=== PATIENT | female | born 1995 | race Caucasian/White ===

== ENCOUNTER → 2016-05-20 | Outpatient (CLI) | payer OTHER ==
[2016-02-11 20:36] VITALS: BP 117/64
[2016-05-20 15:24] LABS: BASOPHILS # (AUTO) 0.1 X10^3/uL (0.0-0.1); BASOPHILS % (AUTO) 0.8 % (0.2-1.0); EOSINOPHILS % (AUTO) 0.3 % (0.9-2.9); HEMATOCRIT 32.8 % (36.0-47.0); LYMPHOCYTES # (AUTO) 1.4 X10^3/uL (1.3-2.9); LYMPHOCYTES % (AUTO) 18.5 % (21.0-51.0); MEAN CORPUSCULAR HEMOGLOBIN 27.4 pg (27.0-34.0); MEAN CORPUSCULAR HGB CONC 33.7 g/dL (33.0-35.0); MEAN CORPUSCULAR VOLUME 81.4 fL (80.0-100.0); MEAN PLATELET VOLUME 7.8 fL (7.4-11.0); MONOCYTES # (AUTO) 0.6 x10^3/uL (0.3-0.8); MONOCYTES % (AUTO) 7.8 % (0.0-13.0); NEUTROPHILS # (AUTO) 5.6 x10^3/uL (2.2-4.8); NEUTROPHILS % (AUTO) 72.6 % (42.0-75.0); PLATELET COUNT 241 X10^3/uL (150.0-450.0); RED BLOOD COUNT 4.03 X10^6/uL (3.5-5.4); RED CELL DISTRIBUTION WIDTH 15.2 % (11.6-16.5); WHITE BLOOD COUNT 7.7 X10^3/uL (3.6-10.0)
[2016-05-20 15:25] LABS: BILIRUBIN,URINE NEGATIVE (NEGATIVE); BLOOD/HEMOGLOBIN,URINE NEGATIVE (NEGATIVE); GLUCOSE, URINE NEGATIVE (NEGATIVE); KETONES,URINE NEGATIVE (NEGATIVE); LEUKOCYTE ESTERASE ,URINE NEGATIVE (NEGATIVE); NITRITES,URINE NEGATIVE (NEGATIVE); PROTEIN,URINE NEGATIVE (NEGATIVE); UROBILINOGEN,URINE 2+ (NORMAL)
[2016-05-20 15:31] LABS: APPEARANCE,URINE CLEAR (CLEAR); COLOR,URINE YELLOW (YELLOW); RBC,URINE NONE SEEN /HPF (NEGATIVE)
[2016-05-20 15:31] LABS: BLOOD UREA NITROGEN 7 mg/dL (7-18); CALCIUM 8.7 mg/dL (8.5-10.1); CHLORIDE 101 mmol/L (98-107); CREATININE 0.59 mg/dL (0.55-1.02); GLUCOSE 99 mg/dL (65-99); SODIUM 132 mmol/L (136-145); eGFR BLACK RACES > 60 (>60); eGFR NON BLACK RACES > 60 (>60)
[2016-05-20 15:32] LABS: AMORPHOUS SEDIMENT,UR TRACE /HPF (NEGATIVE); BACTERIA,URINE TRACE /HPF (NEGATIVE); MUCUS,URINE FEW /HPF (NEGATIVE); SQUAMOUS EPITHELIAL CELL,UR FEW /HPF (NEGATIVE)
== END ==
LOC: LAB 14:54
PROVIDERS: ATTEND Specialist
DX: Z01.818 Encounter for other preprocedural examination (principal); Z34.83 Encounter for supervision of other normal pregnancy, third trimester
CPT/HCPCS: 36415; 80048; 81001; 85025; 86592; 86850; 86900; 86901

== ENCOUNTER 2016-05-22 06:07 | Inpatient (IN) | payer OTHER ==
[2016-05-22] MEDS: D5 1/2 NS 1000 ML 1,000 ML IV SCH ×2 (06:40→17:21)
[2016-05-22] MEDS ORDERED: D5 1/2 NS 1000ML W PITOCIN 20 U/L 1,000 ML IV ONE (06:46)
[2016-05-22] MEDS ORDERED: D5LR 1000ML W PITOCIN 10 U/L 1,000 ML IV ONE (06:46)
[2016-05-22] MEDS ORDERED: D5 NS 1000 ML 1,000 ML IV ONE (06:46)
--- NOTE | 2016-05-22 07:00 | DR.OB ---
OB Quick Note - Assessment/Plan Assessment/Plan: L&D 05/22/16 at 6:50am S-No complaint. O-Afebrile,VSS YTR=807 with good LTV, +accel, no decel. CTX=none CVX=1cm/50%/-1/VTX AROM with clear fluid. IUPC and FSE placed. A-IUP at 39 0/7 weeks for induction Hypothyroidism P-Begin pitocin induction Anticipate
[2016-05-22] MEDS ORDERED: PITOCIN IVP ONE (07:10)
[2016-05-22] MEDS ORDERED: PITOCIN 10 UNITS in D5 LR 1000 ML 1,000 ML IV PRN (07:10)
[2016-05-22] MEDS ORDERED: REGLAN INJ 10 MG VIAL IVP PRN ×3 (07:10→18:39)
[2016-05-22] MEDS ORDERED: MORPHINE SULFATE INJ 2 MG IVP PRN (07:10)
[2016-05-22] MEDS ORDERED: PHENERGAN INJ 25 MG IV PRN ×2 (07:10→18:39)
[2016-05-22] MEDS ORDERED: TYLENOL 325 MG TAB PO ONE (07:50)
[2016-05-22] MEDS ORDERED: PHENERGAN INJ 25 MG ONE (09:02)
[2016-05-22] MEDS ORDERED: NUBAIN INJ 10 ONE ×4 (09:02→14:01)
[2016-05-22] MEDS: NUBAIN INJ 200 MG VIAL MULTIDOSE IVP PRN ×3 (09:16→14:00)
--- NOTE | 2016-05-22 12:16 | DR.OB ---
OB Quick Note - Assessment/Plan Assessment/Plan: L&D 05/22/16 at 12:10pm Pitocin=18mu/min. S-No complaint except CTX. O-Afebrile,VSS BCO=040 with good LTV, +accel, no decel. CTX=q 1 1/2 min., about 45-65mmHg CVX=1cm/75%/-1 A-IUP at 39 0/7 weeks for induction Hypothyroidism P-Cont. pitocin induction Anticipate
[2016-05-22] MEDS ORDERED: PITOCIN ONE (14:33)
[2016-05-22] MEDS ORDERED: VERSED ONE (14:33)
[2016-05-22] MEDS ORDERED: NS 100 ML IV 100 ML IV ONE (16:05)
[2016-05-22] MEDS ORDERED: NS 50 ML IV + SPIKE MINIBAG* 50 ML IV ONE (16:06)
[2016-05-22] MEDS ORDERED: LR 1000 ML IV 1,000 ML IV ONE ×2 (16:06→16:29)
--- NOTE | 2016-05-22 16:24 | DR.OB ---
OB Quick Note - Assessment/Plan Assessment/Plan: L&D 05/22/16 at 4:20pm Pitocin=18mu/min. S-No complaint except CTX O-Afebrile,VSS QOH=970 with good LTV, +accel, no decel. CTX=q 1 1/2 min., about 45-60mmHg CVX=1-2cm/75%/-1 (no change) A-IUP at 39 0/7 weeks with failure to dilate P-To C/S
[2016-05-22] MEDS ORDERED: DURAMORPH ONE (16:40)
[2016-05-22] MEDS: ANCEF VIAL 1 GM ONE ×2 (16:40→17:22)
[2016-05-22] MEDS ORDERED: NS IRRIGATION 1000 ML 1,000 ML IR ONE (17:25)
[2016-05-22] MEDS ORDERED: PHENERGAN INJ 25 MG IVP PRN (17:52)
[2016-05-22] MEDS ORDERED: BENADRYL INJ 50 MG VIAL IVP PRN ×2 (17:52→18:39)
[2016-05-22] MEDS ORDERED: ZOFRAN INJ 4 MG VIAL IVP PRN ×2 (17:52→18:39)
[2016-05-22] MEDS ORDERED: TORADOL 30 MG VIAL IVP PRN (18:39)
[2016-05-22] MEDS ORDERED: MYLICON TAB 80 MG CHEW PO PRN (18:39)
[2016-05-22] MEDS ORDERED: NARCAN INJ IVP PRN (18:39)
[2016-05-22] MEDS ORDERED: D5 1/2 NS 1000 ML 1,000 ML with PITOCIN 20 UNITS IV SCH ×2 (18:39)
[2016-05-22] MEDS ORDERED: ADACEL TDaP IM ONE (18:39)
[2016-05-22] MEDS ORDERED: PERCOCET TAB 5/325 MG PO PRN (18:39)
[2016-05-22] MEDS: ZANTAC PO SCH (21:36)
[2016-05-23] MEDS ORDERED: ADACEL TDaP IM ONE (05:03)
[2016-05-23] MEDS: ZANTAC PO SCH ×3 (07:20→20:32)
[2016-05-23] MEDS: PRENATAL PLUS PO SCH ×2 (07:20→08:55)
[2016-05-23] MEDS: COLACE CAP 100 MG PO SCH ×2 (09:46→20:32)
[2016-05-23] MEDS: BENADRYL CAP/TAB 25 MG PO PRN ×2 (12:13→17:59)
[2016-05-23] MEDS: BACTROBAN OINT TOP SCH ×3 (12:13→23:12)
[2016-05-23] MEDS: MOTRIN TAB 800 MG PO PRN ×2 (12:13→23:57)
[2016-05-23] MEDS: PERCOCET TAB 5/325 MG PO PRN ×2 (14:04→20:37)
[2016-05-23] MEDS ORDERED: SYNTHROID 25 mcg TAB PO SCH ×2 (16:30)
[2016-05-24] MEDS: PERCOCET TAB 5/325 MG PO PRN (05:49)
[2016-05-24] MEDS: BACTROBAN OINT TOP SCH (05:49)
[2016-05-24] MEDS: PRENATAL PLUS PO SCH (09:01)
[2016-05-24] MEDS: ZANTAC PO SCH (09:01)
[2016-05-24] MEDS: COLACE CAP 100 MG PO SCH (09:01)
[2016-05-24] MEDS: MOTRIN TAB 800 MG PO PRN (09:01)
[2016-05-24 12:20] VITALS: BP 127/76
== END 2016-05-24 12:45 | disposition home or self-care (01) | DRG 775 ==
LOC: LD 06:07 → MED/SURG 17:59
PROVIDERS: ADMIT Specialist; ATTEND Specialist
PROC: 10907ZC Drainage of Amniotic Fluid, Therapeutic from Products of Conception, Via Natural or Artificial Opening (ICD-10-PCS; 2016-05-22)
PROC: 3E033VJ Introduction of Other Hormone into Peripheral Vein, Percutaneous Approach (ICD-10-PCS; 2016-05-22)
PROC: 3E0234Z Introduction of Serum, Toxoid and Vaccine into Muscle, Percutaneous Approach (ICD-10-PCS; 2016-05-22)
PROC: 10D00Z1 Extraction of Products of Conception, Low, Open Approach (ICD-10-PCS; principal; 2016-05-22 16:15)
DX: O26.893 Other specified pregnancy related conditions, third trimester (principal); Z37.0 Single live birth; Z3A.39 39 weeks gestation of pregnancy; O62.0 Primary inadequate contractions; Z23 Encounter for immunization; E03.8 Other specified hypothyroidism; J45.998 Other asthma
CPT/HCPCS: 36415; 80048; 81001; 85014; 85018; 85025; 86592; 86850; 86900; 86901; 99282; A4216; A4222; S0197; J0690; J1885; J2250; J2300; J2550; J2590; J7120

== ENCOUNTER 2016-05-25 17:01 | Emergency (ER) | payer OTHER ==
[2016-05-25 17:07] VITALS: BP 134/90; BMI 33.9
[2016-05-25] MEDS ORDERED: BENADRYL CAP 50 MG PO ONE (17:45)
[2016-05-25] MEDS ORDERED: CLARITIN PO STA (17:45)
--- NOTE | 2016-05-25 17:45 | DR.ALLERGY ---
HPI - Time Seen Time seen: 17:30 - PCP Primary Care Physician: HAMIDA - Complaint/Symptoms Chief Complaint Doctors Comments: Patient states she had a three days ago and was discharged from the hospital yesterday with Percocet for pain. States she took one yesterday with itching and took another today with itching and rash of face and arms with diffuse itching. States she took a Benadryl with some improvement in the itching. States she is breast feeding. She denies fever, chills, nausea or vomiting. She denies SOB, abdominal pain, dysuria or hematuria. Chief Complaint:: PT. STATES SHE HAD A ON FRIDAY PER DR. MEI AND WAS D/C YESTERDAY FROM HOSPITAL. PT. STATES SHE THINKS SHE IS ALLERGIC TO HER OXYCODONE SHE WAS PRESCRIBED BECAUSE AFTER SHE TOOK IT, SHE BEGAN TO ITCH AND HER FACE GOT RED. PT. STATES SHE TOOK ONE TODAY BUT TOOK A BENADRYL WITH IT. - Source History Provided: Patient - Mode of Arrival Mode of Arrival: Ambulatory - Timing Onset of Chief Complaint: 05/24/16 Came on: Gradually - Context Exposed to: Medication (Percocet) Developed: Rash, Pruritis History of: None - Location Location: Generalized - Severity SOB: None Swallowing: None Rash: Mild Pruritis: Moderate - Modifying factors Improves: Diphenhydramine - Associated signs and symptoms Associated signs and symptoms: None PMH - PMH Past Medical History: Yes Past Medical History: Asthma Past Medical History Comment: TMJ Past Surgical History: Yes Surgical History: - Family History History of Family Medical Conditions: Yes Family Medical History: Diabetes Mellitus, Cancer, [place], Coronary Artery Disease, Heart Failure, Sudden Cardiac , Hypertension - Social History Does patient currently use any type of tobacco product: No Have you used tobacco products in the last 12 months: No Type of Tobacco Use: None Does any household member use tobacco: No Alcohol Use: None Do you use any recreational Drugs:: No Lives With: Significant Other Lives Where: Home - infectious screening In the last 2 months have you had wt loss of >10#?: NO Have you had fever, night sweats or hemotysis?: No Have you traveled outside the country in the last 6 months?: No Isolation: Standard ROS - Review of Systems Constitutional: No Symptoms Reported. negative: See HPI, Chills, Diaphoresis, Fever, Malaise, Weakness, Irritable, Fatigue, Loss of Appetite, Other Eyes: No Symptoms Reported. negative: See HPI, Eye Pain, Blurred Vision, Tearing, Discharge, Photophobia, Diplopia, Other ENTM: No Symptoms Reported, Nose Congestion Respiratoy: No Symptoms Reported. negative: See HPI, Productive Cough, Non- Productive Cough, Moist Cough, Dry Cough, Hacking Cough, Barking Cough, Brassy Cough, Orthopnea, Short of Breath, Stridor, Wheezing, Hemoptysis, Other Cardiovascular: No Symptoms Reported. negative: See HPI, Chest Pain, Edema, Palpitations, Syncope, Cyanosis, Skin Mottling, Other Gastrointestinal/Abdominal: No Symptoms Reported Genitourinary: No Symptoms Reported. negative: See HPI, Discharge, Dysuria, Frequency, Hematuria, Pain, Bleeding, Other Neurological: No Symptoms Reported Musculoskeletal: No Symptoms Reported Integumentary: No Symptoms Reported, Rash (facial erythema with few papules) Hematologic/Lymphatic: No Symptoms Reported Endocrine: No Symptoms Reported Psychiatric: No Symptoms Reported. negative: See HPI, Anxiety, Depression, Hallucinations, Excessive crying, Suicidal, Other PE - Vitals Vital Signs: Temp Pulse Resp BP BP BP Pulse Ox 05/25/16 17:02 98.3 F 95 H 17 134/90 100 05/24/16 12:00 127/76 127/76 05/22/16 16:30 136/86 - Constitutional Limitations: No Limitations General Appearance: Alert, In No Apparent Distress - Head Head Exam: Normal Inspection, Atraumatic, Normocephalic - Eyes Eye exam: Normal Appearance, PERRL, EOMI. negative: Scleral Icterus, Conjunctival Injection, Nystagmus, Miosis, Mydrasis, Periorbital Swelling, Periorbital Tenderness, Other - ENT ENT Exam: Normal Exam, Normal Oropharynx, Normal External Ear Exam, Mucous Membranes Moist, TM's Normal Bilaterally Mouth Exam: Normal Inspection Throat Exam: Normal Inspection - Neck Neck Exam: Normal Inspection, Full ROM, Trachea Midline. negative: Tenderness, Meningismus, Lymphadenopathy, Thyromegaly, Other - Chest Chest Inspection: Normal Inspection, Symmetric Chest Wall Rise - Respiratory Respiratory Exam: Normal Lung Sounds Bilat Respiratory Exam: Bilateral Clear to Auscultation - Cardiovascular Cardiovascular Exam: Regular Rate, Normal Rhythm, Normal Heart Sounds. negative : Bradycardia, Tachycardia, Irregular Rhythm, Systolic Murmur, Diastolic Murmur , Rubs, Gallop, Clicks, JVD, +S1, +S2, +S3, +S4, Other - Abdominal Exam Abdominal Exam: Normal Inspection, Normal Bowel Sounds, Soft. negative: Distention, Tenderness, Guarding, Rebound, Rigidity, Dimnished Bowel Sounds, Hyperactive Bowel Sounds, Hypoactive Bowel Sounds, Organomegaly, Trauma, Incision, Ascites, Mass, Bruit, Pulsatile Mass, Hernia, Other Abdominal Tenderness: negative: RUQ, RLQ, LUQ, LLQ, Epigastrium, Suprapubic, Diffuse, Mild, Moderate, Severe, Other - Extremities Extremities Exam: Normal Inspection, Full ROM, Normal Capillary Refill. negative: Tenderness, Edema, Joint Swelling, Calf Tenderness, Other - Back Back Exam: Normal Inspection, Full ROM. negative: Tenderness, (R) CVA Tenderness, (L) CVA Tenderness, Muscle Spasm, Paraspinal Tenderness, Vertebral Tenderness, Rashes, (R) Sciatic Notch Tenderness, (L) Sciatic Notch Tendern, (R ) Straight Leg Raise, (L) Straight Leg Raise, Other - Neurologic Neurological Exam: Alert, Oriented X3, CN II-XII Intact, Normal Gait, Reflexes Normal - Psychiatric Psychiatric Exam: Normal Affect, Normal Mood - Skin Skin Exam: Warm, Dry, Intact, Normal Color, Rash (facial erythema with few papules on the face; arm with erythema), Erythema Type of Lesion: Rash Distribution: Generalized, Face Description: Erythematous, Papular Course - Reevaluation 1st: Improved - Education/Counseling Education/Counseling: Patient, Family Educated On: Treatment, Diagnosis, Prognosis, Needs for Follow Up - Diagnosis Discharge Problem: History of Allergic reaction Qualifiers: Encounter type: initial encounter Qualified Code(s): T78.40XA - Allergy, unspecified, initial encounter - Discharge Plan Disposition: 01 HOME, SELF-CARE Condition: Stable Prescriptions: Diphenhydramine HCl [BENADRYL CAP 50 MG *] 50 mg PO Q8H #30 cap Loratadine [Allergy] 10 mg PO DAILY #30 tab Ranitidine HCl [ZANTAC TAB 150 MG *] 150 mg PO BID #40 tab - Follow ups/Referrals Follow ups/Referrals: PEGGY MEI [Primary Care Provider] - 3 days - Instructions Instructions: Drug Allergy, [id number], Pruritus, Allergies, [id number]
[2016-05-25] MEDS ORDERED: ZANTAC PO STA (17:46)
[2016-05-25] MEDS ORDERED: BENADRYL CAP/TAB 25 MG PO ONE (17:48)
[2016-05-25] MEDS ORDERED: ZANTAC PO ONE (17:48)
[2016-05-25] MEDS ORDERED: CLARITIN ONE (17:49)
== END 2016-05-25 18:02 | disposition home or self-care (01) ==
LOC: ER 17:10
DX: T78.40XA Allergy, unspecified, initial encounter (principal); Z98.890 Other specified postprocedural states
CPT/HCPCS: 36415; 85014; 85018; 99282; A4216; A4222; S0197; J0690; J1885; J2250; J2300; J2550; J2590; J7120

== ENCOUNTER 2016-12-20 18:38 | Emergency (ER) | payer OTHER ==
[2016-12-20 18:51] VITALS: BP 112/72; BMI 35.9
--- NOTE | 2016-12-20 19:56 | DR.URIAD ---
HPI - Time Seen Time seen: 19:48 - PCP Primary Care Physician: SABRINA - HPI Comment HPI Comment: She has Upper respiratory symptoms to include earache b/l, sore throat,chest cold, cough productive of clear phlegm and congestion. Symptoms yesterday. - Complaint Chief Complaint Doctors Comments: B/l earache, sore throat, cough, cold and congestion Chief Complaint:: PT C/O CCC, EAR PAIN, SOB".. Self Treatment fo Chief Complaint: PT IS 11 WEEK OB,,, - Reviewed Nurses Notes Reviewed: Yes - Source History Provided: Patient - Mode of Arrival Mode of Arrival: Ambulatory - Timing Onset of Chief Complaint: 12/19/16 - Context Recent Treated Infections: None History of Respiratory: None - Quality Quality of Cough: Productive, Clear Rhinorrhea: None Shortness of Breath: Mild - Associated Signs and Symptoms Other Signs and Symptoms: Earache PMH - PMH Past Medical History: Yes Past Medical History: Asthma Past Medical History Comment: TMJ. Currently , 1st trimester. Past Surgical History: Yes Surgical History: Past Surgical History Comment: . - Family History History of Family Medical Conditions: Yes Family Medical History: Diabetes Mellitus, Cancer, [place], Coronary Artery Disease, Heart Failure, Sudden Cardiac , Hypertension - Social History Does patient currently use any type of tobacco product: No Have you used tobacco products in the last 12 months: No Type of Tobacco Use: None Does any household member use tobacco: No Alcohol Use: None Do you use any recreational Drugs:: No Lives With: Family Lives Where: Home - infectious screening In the last 2 months have you had wt loss of >10#?: NO Have you had fever, night sweats or hemotysis?: No Have you traveled outside the country in the last 6 months?: No Isolation: Standard ROS - Review of Systems Eyes: No Symptoms Reported ENTM: Ear Pain Respiratoy: Productive Cough, Other (mild dyspnea) Cardiovascular: No Symptoms Reported Gastrointestinal/Abdominal: No Symptoms Reported Genitourinary: No Symptoms Reported Neurological: No Symptoms Reported Musculoskeletal: No Symptoms Reported Integumentary: No Symptoms Reported Hematologic/Lymphatic: No Symptoms Reported Endocrine: No Symptoms Reported Psychiatric: No Symptoms Reported All Other Systems: Reviewed and Negative PE - Vital Signs Vitals: Temperature 99.2 F Pulse Rate 104 Respiratory Rate 20 Blood Pressure [Right Arm] 127/76 Blood Pressure [Left Arm] 136/86 Blood Pressure 112/72 O2 Sat by Pulse Oximetry 98 - General Limitations: No Limitations General Appearance: Alert, In No Apparent Distress - Head Head Exam: Normal Inspection - Eyes Eye exam: Normal Appearance - ENT ENT Exam: Normal Exam TM/Canal Exam: Bilateral Normal Nose Exam: Normal Nose Exam Nasal Speculum Exam: Bilateral Normal Mouth Exam: Normal Inspection - Neck Neck Exam: Normal Inspection, Full ROM - Chest Chest Inspection: Normal Inspection, Symmetric Chest Wall Rise - Respiratory Respiratory Exam: Normal Lung Sounds Bilat Respiratory Exam: Bilateral Clear to Auscultation - Cardiovascular Cardiovascular Exam: Regular Rate, Normal Rhythm - Abdominal Exam Abdominal Exam: Normal Inspection, Normal Bowel Sounds, Soft - Extremeties Extremities Exam: Normal Inspection, Full ROM - Back Back Exam: Normal Inspection - Neurologic Neurological Exam: Alert, Oriented X3 - Psychiatric Psychiatric Exam: Normal Affect - Skin Skin Exam: Warm, Dry, Intact, Normal Color Course - Reevaluation 1st: Unchanged - Education/Counseling Education/Counseling: Patient, Family Educated On: Diagnosis ROR - Labs Reviewed Laboratory: Streptococcus Screen Negative (NEGATIVE) 12/20/16 20:06 - Diagnosis Discharge Problem: URI (upper respiratory infection) - Discharge Plan Disposition: 01 HOME, SELF-CARE Condition: Stable - Follow ups/Referrals Follow ups/Referrals: NFD,None [Primary Care Provider] - 3 days - Instructions
== END 2016-12-20 20:32 | disposition home or self-care (01) ==
LOC: ER 18:56
DX: J06.9 Acute upper respiratory infection, unspecified (principal)
CPT/HCPCS: 87070; 87880; 99282

== ENCOUNTER 2017-03-24 20:48 | Emergency (ER) | payer OTHER ==
[2017-03-24 20:55] VITALS: BMI 37.0
[2017-03-24 21:23] LABS: BILIRUBIN,URINE NEGATIVE (NEGATIVE); BLOOD/HEMOGLOBIN,URINE NEGATIVE (NEGATIVE); GLUCOSE, URINE NEGATIVE (NEGATIVE); KETONES,URINE NEGATIVE (NEGATIVE); LEUKOCYTE ESTERASE ,URINE NEGATIVE (NEGATIVE); NITRITES,URINE NEGATIVE (NEGATIVE); PROTEIN,URINE NEGATIVE (NEGATIVE); UROBILINOGEN,URINE NORMAL (NORMAL)
--- NOTE | 2017-03-24 21:30 | DR.GENAD ---
HPI - PCP Primary Care Physician: HAMIDA - HPI Comment HPI Comment: LOWER ABDOMINAL PAIN AND PAIN GROIN AREA. . MOVEMENT FELT. NO VAGINAL DISCHRGE. - Complaint/Symptoms Chief Complaint Doctors Comments: PAIN LOWER ABDOMEN AND GROIN AREA. Chief Complaint:: PT STATES" I'M ON BED REST PER PT C/O PAIN IN GROIN BACK AND ABDOMEN" Self Treatment fo Chief Complaint: G 2 P 1 A 0 DUE DATE 07/10/17 - Nurses notes reviewed Nurses Notes Review: Yes - Source History Provided: Patient - Mode of Arrival Mode of Arrival: Ambulatory - Timing Onset of Chief Complaint: 03/24/17 Came on: Suddenly - Duration Duration: Constant Duration: Days - Severity Severity: Moderate PMH - PMH Past Medical History: Yes Past Medical History: Asthma Past Surgical History: Yes Surgical History: - Family History History of Family Medical Conditions: Yes Family Medical History: Diabetes Mellitus, Cancer, [place], Coronary Artery Disease, Heart Failure, Sudden Cardiac , Hypertension - Social History Does any household member use tobacco: No Alcohol Use: None Do you use any recreational Drugs:: No Lives With: Family Lives Where: Home - infectious screening In the last 2 months have you had wt loss of >10#?: NO Have you had fever, night sweats or hemotysis?: No Have you traveled outside the country in the last 6 months?: No Isolation: Standard ROS - Review of Systems Constitutional: No Symptoms Reported Eyes: No Symptoms Reported ENTM: No Symptoms Reported Respiratoy: No Symptoms Reported, Short of Breath Cardiovascular: No Symptoms Reported Gastrointestinal/Abdominal: Abdominal Pain Genitourinary: No Symptoms Reported Neurological: No Symptoms Reported Musculoskeletal: No Symptoms Reported Integumentary: No Symptoms Reported Hematologic/Lymphatic: No Symptoms Reported Endocrine: No Symptoms Reported All Other Systems: Reviewed and Negative PE - Vital Signs Vitals: Temperature 97.2 F Pulse Rate [Right Brachial] 86 Pulse Rate 86 Respiratory Rate 18 Blood Pressure [Right Arm] 122/80 Blood Pressure [Left Arm] 136/86 Blood Pressure 113/60 O2 Sat by Pulse Oximetry 100 - General Limitations: No Limitations General Appearance: Alert - Head Head Exam: Normal Inspection - Eyes Eye exam: Normal Appearance - ENT ENT Exam: Normal External Ear Exam External Ear Exam: Normal External Inspection TM/Canal Exam: Bilateral Normal Nose Exam: Normal Nose Exam Mouth Exam: Normal Inspection Throat Exam: Normal Inspection - Neck Neck Exam: Trachea Midline - Chest Chest Inspection: Symmetric Chest Wall Rise - Respiratory Respiratory Exam: Normal Lung Sounds Bilat Respiratory Exam: Bilateral Clear to Auscultation - Cardiovascular Cardiovascular Exam: Regular Rate, Normal Rhythm, Normal Heart Sounds - Abdominal Exam Abdominal Exam: Normal Bowel Sounds, Soft. negative: Tenderness - Back Back Exam: Normal Inspection - Neurologic Neurological Exam: Alert, Oriented X3 - Psychiatric Psychiatric Exam: Normal Affect, Normal Mood - Skin Skin Exam: Normal Color MDM - Differential Diagnosis Differential Diagnosis: ABDOMINAL PAIN, UTI Course - Treatment Treatment: SEE ORDERS. - Consultation Consultation Comments: NURSE CALL AND DISCUSS PATIENT WITH DR. PACE. - Education/Counseling Education/Counseling: Patient, Education Educated On: Treatment, Diagnosis, Needs for Follow Up ROR - Labs Reviewed Laboratory Results Reviewed?: Yes Result Diagrams: 03/24/17 22:50 03/24/17 22:50 Laboratory: WBC 8.8 X10^3/uL (3.6-10.0) 03/24/17 22:50 RBC 4.31 X10^6/uL (3.5-5.4) 03/24/17 22:50 Hgb 12.3 g/dL (12.0-16.0) 03/24/17 22:50 Hct 36.4 % (36.0-47.0) 03/24/17 22:50 MCV 84.5 fL (80.0-100.0) 03/24/17 22:50 MCH 28.6 pg (27.0-34.0) 03/24/17 22:50 MCHC 33.8 g/dL (33.0-35.0) 03/24/17 22:50 RDW 13.3 % (11.6-16.5) 03/24/17 22:50 Plt Count 280 X10^3/uL (150.0-450.0) 03/24/17 22:50 MPV 7.0 fL (7.4-11.0) L 03/24/17 22:50 Neut % 72.1 % (42.0-75.0) 03/24/17 22:50 Lymph % 19.0 % (21.0-51.0) L 03/24/17 22:50 [place] % 7.6 % (0.0-13.0) 03/24/17 22:50 Eos % 0.7 % (0.9-2.9) L 03/24/17 22:50 Baso % 0.6 % (0.2-1.0) 03/24/17 22:50 Neut # 6.4 x10^3/uL (2.2-4.8) H 03/24/17 22:50 Lymph # 1.7 X10^3/uL (1.3-2.9) 03/24/17 22:50 [place] # 0.7 x10^3/uL (0.3-0.8) 03/24/17 22:50 Eos # 0.1 x10^3/uL (0.0-0.2) 03/24/17 22:50 Baso # 0.1 X10^3/uL (0.0-0.1) 03/24/17 22:50 Absolute Nucleated RBC 0.0 /100WBC 03/24/17 22:50 D-Dimer 210 ng/mL (0-400) 03/24/17 22:50 Sodium 139 mmol/L (136-145) 03/24/17 22:50 Corrected Sodium TNP 03/24/17 22:50 Potassium 3.9 mmol/L (3.5-5.1) 03/24/17 22:50 Chloride 105 mmol/L (98-107) 03/24/17 22:50 Carbon Dioxide 26.5 mmol/L (21-32) 03/24/17 22:50 BUN 5 mg/dL (7-18) L 03/24/17 22:50 Creatinine 0.49 mg/dL (0.55-1.02) L 03/24/17 22:50 Est GFR (MDRD) Af Amer > 60 (>60) 03/24/17 22:50 Est GFR (MDRD) Non-Af > 60 (>60) 03/24/17 22:50 Glucose 90 mg/dL (65-99) 03/24/17 22:50 Calcium 9.1 mg/dL (8.5-10.1) 03/24/17 22:50 Corrected Calcium 9.9 mg/dL (8.5-10.1) 03/24/17 22:50 Total Bilirubin 0.10 mg/dL (0.2-1.0) L 03/24/17 22:50 AST 12 Units/L (15-37) L 03/24/17 22:50 ALT 12 Units/L (12-78) 03/24/17 22:50 Alkaline Phosphatase 76 Units/L (46-116) 03/24/17 22:50 Total Protein 7.0 g/dL (6.4-8.2) 03/24/17 22:50 Albumin 3.0 g/dL (3.4-5.0) L 03/24/17 22:50 Globulin 4.0 g/dL (2.5-4.5) 03/24/17 22:50 Albumin/Globulin Ratio 0.8 Ratio (1.1-2.1) L 03/24/17 22:50 HCG, Quant 9464 mIU/mL (0-6) H 03/24/17 22:50 Specimen Type Clean catch urine 03/24/17 21:05 Urine Color Yellow (YELLOW) 03/24/17 21:05 Urine Appearance Clear (CLEAR) 03/24/17 21:05 Urine pH 6.0 (5.0 - 8.0) 03/24/17 21:05 Ur Specific [place] 1.020 (1.000-1.030) 03/24/17 21:05 Urine Protein Negative (NEGATIVE) 03/24/17 21:05 Urine Glucose (UA) Negative (NEGATIVE) 03/24/17 21:05 Urine Ketones Negative (NEGATIVE) 03/24/17 21:05 Urine Occult Blood Negative (NEGATIVE) 03/24/17 21:05 Urine Nitrite Negative (NEGATIVE) 03/24/17 21:05 Urine Bilirubin Negative (NEGATIVE) 03/24/17 21:05 Urine Urobilinogen Normal (NORMAL) 03/24/17 21:05 Ur Leukocyte Esterase Negative (NEGATIVE) 03/24/17 21:05 Urine RBC 0-2 /HPF (NEGATIVE) 03/24/17 21:05 Urine WBC 0-2 /HPF (NEGATIVE) 03/24/17 21:05 Ur Squamous Epith Cells Moderate /HPF (NEGATIVE) 03/24/17 21:05 Urine Bacteria Negative /HPF (NEGATIVE) 03/24/17 21:05 Urine Mucus Few /HPF (NEGATIVE) 03/24/17 21:05 Ur Culture Indicated? No/not indicated 03/24/17 21:05 - Diagnosis Discharge Problem: Abdominal pain affecting Back pain affecting Qualifiers: Trimester: second trimester Qualified Code(s): O26.892 - Other specified related conditions, second trimester; M54.9 - Dorsalgia, unspecified; M54.9 - Dorsalgia, unspecified - Discharge Plan Disposition: 01 HOME, SELF-CARE Condition: Stable - Follow ups/Referrals Follow ups/Referrals: NFD,None [Primary Care Provider] - 3 days - Instructions Instructions: Hypothyroidism and , Back Pain in , Pelvic Rest , Abdominal Pain During , Second Trimester of Additional Instructions: CALL FOR APPOINTMENT TO SEE DR. MEI TOMORROW BEDREST VAGINAL REST INCREASE FLUID INTAKE TO A [place] A DAY
[2017-03-24 21:36] LABS: APPEARANCE,URINE CLEAR (CLEAR); COLOR,URINE YELLOW (YELLOW); RBC,URINE 0-2 /HPF (NEGATIVE); SQUAMOUS EPITHELIAL CELL,UR MODERATE /HPF (NEGATIVE)
[2017-03-24 21:37] LABS: BACTERIA,URINE NEGATIVE /HPF (NEGATIVE); MUCUS,URINE FEW /HPF (NEGATIVE)
[2017-03-24 23:01] LABS: BASOPHILS # (AUTO) 0.1 X10^3/uL (0.0-0.1); BASOPHILS % (AUTO) 0.6 % (0.2-1.0); EOSINOPHILS # (AUTO) 0.1 x10^3/uL (0.0-0.2); EOSINOPHILS % (AUTO) 0.7 % (0.9-2.9); HEMATOCRIT 36.4 % (36.0-47.0); HEMOGLOBIN 12.3 g/dL (12.0-16.0); LYMPHOCYTES # (AUTO) 1.7 X10^3/uL (1.3-2.9); MEAN CORPUSCULAR HEMOGLOBIN 28.6 pg (27.0-34.0); MEAN CORPUSCULAR HGB CONC 33.8 g/dL (33.0-35.0); MEAN CORPUSCULAR VOLUME 84.5 fL (80.0-100.0); MONOCYTES # (AUTO) 0.7 x10^3/uL (0.3-0.8); MONOCYTES % (AUTO) 7.6 % (0.0-13.0); NEUTROPHILS # (AUTO) 6.4 x10^3/uL (2.2-4.8); NEUTROPHILS % (AUTO) 72.1 % (42.0-75.0); PLATELET COUNT 280 X10^3/uL (150.0-450.0); RED BLOOD COUNT 4.31 X10^6/uL (3.5-5.4); RED CELL DISTRIBUTION WIDTH 13.3 % (11.6-16.5); WHITE BLOOD COUNT 8.8 X10^3/uL (3.6-10.0)
[2017-03-24 23:17] LABS: ALANINE AMINOTRANSFERASE 12 Units/L (12-78); ALKALINE PHOSPHATASE 76 Units/L (46-116); ASPARTATE AMINO TRANSFERASE 12 Units/L (15-37); BLOOD UREA NITROGEN 5 mg/dL (7-18); CALCIUM 9.1 mg/dL (8.5-10.1); CARBON DIOXIDE 26.5 mmol/L (21-32); CHLORIDE 105 mmol/L (98-107); COR CA(FOR HYPOALB) 9.9 mg/dL (8.5-10.1); CREATININE 0.49 mg/dL (0.55-1.02); SODIUM 139 mmol/L (136-145); eGFR BLACK RACES > 60 (>60); eGFR NON BLACK RACES > 60 (>60)
[2017-03-24 23:42] LABS: HCG,QUANTITATIVE 9464 mIU/mL (0-6)
[2017-03-24 23:46] VITALS: BP 122/80
== END 2017-03-24 23:40 | disposition home or self-care (01) ==
LOC: ER 21:04
DX: R10.84 Generalized abdominal pain (principal); O26.892 Other specified pregnancy related conditions, second trimester; M54.9 Dorsalgia, unspecified; Z3A.00 Weeks of gestation of pregnancy not specified
CPT/HCPCS: 36415; 80053; 81001; 84702; 85025; 85378; 99284

== ENCOUNTER → 2017-06-30 | Outpatient (CLI) | payer OTHER ==
[2017-06-30 08:48] LABS: BILIRUBIN,URINE NEGATIVE (NEGATIVE); BLOOD/HEMOGLOBIN,URINE NEGATIVE (NEGATIVE); GLUCOSE, URINE NEGATIVE (NEGATIVE); KETONES,URINE NEGATIVE (NEGATIVE); LEUKOCYTE ESTERASE ,URINE NEGATIVE (NEGATIVE); NITRITES,URINE NEGATIVE (NEGATIVE); PROTEIN,URINE NEGATIVE (NEGATIVE); UROBILINOGEN,URINE NORMAL (NORMAL)
[2017-06-30 08:53] LABS: BLOOD UREA NITROGEN 3 mg/dL (7-18); CALCIUM 8.3 mg/dL (8.5-10.1); CARBON DIOXIDE 21.3 mmol/L (21-32); CHLORIDE 104 mmol/L (98-107); SODIUM 137 mmol/L (136-145); eGFR BLACK RACES > 60 (>60); eGFR NON BLACK RACES > 60 (>60)
[2017-06-30 08:54] LABS: BASOPHILS # (AUTO) 0.1 X10^3/uL (0.0-0.1); BASOPHILS % (AUTO) 1.5 % (0.2-1.0); EOSINOPHILS % (AUTO) 0.4 % (0.9-2.9); HEMATOCRIT 34.5 % (36.0-47.0); HEMOGLOBIN 11.5 g/dL (12.0-16.0); LYMPHOCYTES # (AUTO) 2.2 X10^3/uL (1.3-2.9); LYMPHOCYTES % (AUTO) 25.9 % (21.0-51.0); MEAN CORPUSCULAR HEMOGLOBIN 26.4 pg (27.0-34.0); MEAN CORPUSCULAR HGB CONC 33.5 g/dL (33.0-35.0); MEAN CORPUSCULAR VOLUME 78.9 fL (80.0-100.0); MEAN PLATELET VOLUME 7.1 fL (7.4-11.0); MONOCYTES # (AUTO) 0.6 x10^3/uL (0.3-0.8); MONOCYTES % (AUTO) 6.9 % (0.0-13.0); NEUTROPHILS # (AUTO) 5.6 x10^3/uL (2.2-4.8); NEUTROPHILS % (AUTO) 65.3 % (42.0-75.0); PLATELET COUNT 272 X10^3/uL (150.0-450.0); RED BLOOD COUNT 4.37 X10^6/uL (3.5-5.4); RED CELL DISTRIBUTION WIDTH 15.5 % (11.6-16.5); WHITE BLOOD COUNT 8.5 X10^3/uL (3.6-10.0)
[2017-06-30 09:59] LABS: APPEARANCE,URINE CLEAR (CLEAR); COLOR,URINE YELLOW (YELLOW)
== END ==
LOC: LAB 08:14
PROVIDERS: ATTEND Specialist
DX: Z01.818 Encounter for other preprocedural examination (principal); Z34.83 Encounter for supervision of other normal pregnancy, third trimester
CPT/HCPCS: 36415; 80048; 81003; 85025; 85610; 85730; 86592; 86850; 86900; 86901; 87086

== ENCOUNTER 2017-07-02 06:27 | Inpatient (IN) | payer OTHER ==
[~2017-07-02 06:27] MED LIST: ANCEF 1 GM IV PREMIX* 0 GM/0 ML BAG IV ONE
[2017-07-02] MEDS ORDERED: ANCEF 1 GM IV PREMIX* 1 GM/50 ML BAG IV ONE (06:29)
[2017-07-02] MEDS ORDERED: LR 1000 ML IV 1,000 ML IV ONE ×2 (06:29→06:58)
[2017-07-02] MEDS ORDERED: ANCEF VIAL 1 GM 1 GM in NS 50 ML IV + SPIKE MINIBAG* 50 ML IV PRN (06:32)
[2017-07-02] MEDS ORDERED: D5 1/2 NS 1000 ML 1,000 ML IV SCH (06:32)
[2017-07-02] MEDS: LR 1000 ML IV 1,000 ML IV ONE ×2 (06:40→06:53)
[2017-07-02] MEDS: DURAMORPH ONE ×2 (07:12→07:16)
[2017-07-02] MEDS: XYLOCAINE 2 % (PLAIN) ONE ×2 (07:12→07:16)
[2017-07-02] MEDS: D5 1/2 NS 1L W PITOCIN 20 UNITS/L 20 UNITS/1,000 ML BAG IV ONE ×2 (07:12→07:48)
[2017-07-02] MEDS ORDERED: NS IRRIGATION 1000 ML 1,000 ML IR ONE ×2 (07:57)
[2017-07-02] MEDS ORDERED: ZOFRAN INJ 4 MG VIAL IVP PRN ×2 (08:35→09:01)
[2017-07-02] MEDS ORDERED: REGLAN INJ 10 MG VIAL IVP PRN ×2 (08:35→09:01)
[2017-07-02] MEDS ORDERED: PHENERGAN INJ 25 MG IVP PRN (08:35)
[2017-07-02] MEDS ORDERED: BENADRYL INJ 50 MG VIAL IVP PRN (08:35)
[2017-07-02] MEDS ORDERED: TORADOL 30 MG VIAL ONE (08:35)
[2017-07-02] MEDS ORDERED: ADACEL TDaP IM ONE ×2 (09:01→11:24)
[2017-07-02] MEDS ORDERED: D5 1/2 NS 1000 ML 1,000 ML with PITOCIN 20 UNITS IV SCH ×2 (09:01)
[2017-07-02] MEDS ORDERED: MYLICON TAB 80 MG CHEW PO PRN (09:01)
[2017-07-02] MEDS ORDERED: PERCOCET TAB 5/325 MG PO PRN (09:01)
[2017-07-02] MEDS: BENADRYL INJ 50 MG VIAL IVP PRN ×2 (11:08→16:45)
[2017-07-02] MEDS: PRENATAL PLUS PO SCH ×2 (11:26→11:34)
[2017-07-02] MEDS: ZANTAC PO SCH ×3 (11:26→20:14)
[2017-07-02] MEDS ORDERED: PITOCIN ONE (12:52)
[2017-07-02] MEDS ORDERED: NEO-SYNEPHRINE INJ ONE (15:29)
[2017-07-02] MEDS ORDERED: ZOFRAN INJ 4 MG VIAL ONE (15:29)
[2017-07-02] MEDS ORDERED: EPHEDRINE SULFATE INJ ONE (15:29)
[2017-07-02] MEDS ORDERED: XYLOCAINE 2 % (PLAIN) ONE (15:29)
[2017-07-02] MEDS ORDERED: DIPRIVAN VIAL ONE (15:29)
[2017-07-02] MEDS: TORADOL 30 MG VIAL IVP PRN (16:33)
[2017-07-02] MEDS: NARCAN INJ IVP PRN (20:13)
[2017-07-03] MEDS: NARCAN INJ IVP PRN (03:17)
[2017-07-03] MEDS: TORADOL 30 MG VIAL IVP PRN (03:17)
[2017-07-03 05:28] LABS: HEMOGLOBIN 9.7 g/dL (12.0-16.0)
[2017-07-03] MEDS: PRENATAL PLUS PO SCH (08:57)
[2017-07-03] MEDS: ZANTAC PO SCH ×2 (08:57→21:05)
[2017-07-03] MEDS: MOTRIN TAB 800 MG PO PRN ×2 (09:04→17:07)
[2017-07-03] MEDS: COLACE CAP 100 MG PO SCH ×2 (09:05→21:05)
[2017-07-03] MEDS: BACTROBAN OINT TOP SCH ×2 (14:22→22:00)
[2017-07-03] MEDS: ULTRAM PO PRN (19:08)
[2017-07-04] MEDS: MOTRIN TAB 800 MG PO PRN ×3 (00:11→15:28)
[2017-07-04] MEDS: ULTRAM PO PRN ×2 (05:32→10:49)
[2017-07-04] MEDS: BACTROBAN OINT TOP SCH ×2 (05:34→15:27)
[2017-07-04] MEDS: PRENATAL PLUS PO SCH ×2 (07:43→10:48)
[2017-07-04] MEDS: ZANTAC PO SCH ×2 (07:44→10:48)
[2017-07-04] MEDS: COLACE CAP 100 MG PO SCH ×3 (07:44→10:48)
[2017-07-04] MEDS: DULCOLAX SUPPOSITORY 10 MG RECTAL ONE ×2 (12:30→12:31)
[2017-07-04 17:09] VITALS: BP 114/58
== END 2017-07-04 18:30 | disposition home or self-care (01) | DRG 766 ==
LOC: LD 06:27 → MED/SURG 08:42
PROVIDERS: ADMIT Specialist; ATTEND Specialist
PROC: 3E0234Z Introduction of Serum, Toxoid and Vaccine into Muscle, Percutaneous Approach (ICD-10-PCS; 2017-07-02)
PROC: 10D00Z1 Extraction of Products of Conception, Low, Open Approach (ICD-10-PCS; principal; 2017-07-02 07:30)
DX: O36.5930 Maternal care for other known or suspected poor fetal growth, third trimester, not applicable or unspecified (principal); Z37.0 Single live birth; O34.211 Maternal care for low transverse scar from previous cesarean delivery; O99.89 Other specified diseases and conditions complicating pregnancy, childbirth and the puerperium; N85.8 Other specified noninflammatory disorders of uterus; Z3A.38 38 weeks gestation of pregnancy
CPT/HCPCS: 36415; 80048; 81003; 85014; 85018; 85025; 85610; 85730; 86592; 86850; 86900; 86901; 87086; A4216; A4222; S0197; J0690; J1200; J1885; J2001; J2310; J2370; J2405; J2590; J3490; J7120

== ENCOUNTER 2017-07-04 21:40 | Emergency (ER) | payer OTHER ==
[2017-07-04 21:48] VITALS: BP 126/69; BMI 37.8
--- NOTE | 2017-07-04 22:40 | DR.GENAD ---
HPI - PCP Primary Care Physician: AHMIDA - Complaint/Symptoms Chief Complaint Doctors Comments: Patient states that she had a repeat C- section two days ago and had tennille in her surgical wound and the tennille were removed today and she has been having increased drainage around the steri- stipes. she denies fever, chills, cold, cough, dysuria or hematuria. states she is breast feeding. Spouse states the doctor mention that the wound may have to be packed. States she took a hydrocodone at home for pain and she is not hurting presently. Chief Complaint:: " INCISION OPEN AGAIN" - Nurses notes reviewed Nurses Notes Review: Yes - Source History Provided: Patient - Mode of Arrival Mode of Arrival: Ambulatory - Timing Onset of Chief Complaint: 07/04/17 Came on: Gradually - Duration Duration: Constant How lon Duration: Days - Location Location: suprapubic laceration - Severity Severity: Moderate - Modifying Factors Worsens:: movement Improves:: nothing PMH - PMH Past Medical History: Yes Past Medical History: Asthma Past Medical History Comment: "THYROID PROBLEMS, TMJ" Past Surgical History: No Surgical History: Past Surgical History Comment: #2 - Family History History of Family Medical Conditions: No Family Medical History: Diabetes Mellitus, Cancer, [place], Coronary Artery Disease, Heart Failure, Sudden Cardiac , Hypertension - Social History Does patient currently use any type of tobacco product: No Have you used tobacco products in the last 12 months: No Type of Tobacco Use: None Does any household member use tobacco: No Alcohol Use: None Do you use any recreational Drugs:: No Lives With: Family Lives Where: Home - infectious screening In the last 2 months have you had wt loss of >10#?: NO Have you had fever, night sweats or hemotysis?: No Have you traveled outside the country in the last 6 months?: No Isolation: Standard ROS - Review of Systems Constitutional: No Symptoms Reported. negative: See HPI, Chills, Diaphoresis, Fever, Malaise, Weakness, Irritable, Fatigue, Loss of Appetite, Other Eyes: No Symptoms Reported ENTM: No Symptoms Reported Respiratoy: No Symptoms Reported Cardiovascular: No Symptoms Reported. negative: See HPI, Chest Pain, Edema, Palpitations, Syncope, Cyanosis, Skin Mottling, Other Gastrointestinal/Abdominal: No Symptoms Reported, Abdominal Pain. negative: See HPI, Constipation, Diarrhea, Nausea, Vomiting, Food Intolerance, Other Genitourinary: No Symptoms Reported. negative: See HPI, Discharge, Dysuria, Frequency, Hematuria, Pain, Bleeding, Other Neurological: No Symptoms Reported Musculoskeletal: No Symptoms Reported Integumentary: No Symptoms Reported, Wound (surgical wound with poor approximation suprapubic area) Hematologic/Lymphatic: No Symptoms Reported Endocrine: No Symptoms Reported Psychiatric: No Symptoms Reported PE - Vital Signs Vitals: Temperature 97.7 F Pulse Rate 79 Respiratory Rate 20 Blood Pressure [Right Arm] 114/58 Blood Pressure [Left Arm] 97/54 Blood Pressure 126/69 O2 Sat by Pulse Oximetry 98 - General Limitations: No Limitations General Appearance: Alert, In Distress (slight), Obese - Head Head Exam: Normal Inspection, Atraumatic, Normocephalic - Eyes Eye exam: Normal Appearance, PERRL, EOMI. negative: Scleral Icterus, Conjunctival Injection, Nystagmus, Miosis, Mydrasis, Periorbital Swelling, Periorbital Tenderness, Other - ENT ENT Exam: Normal Exam, Normal Oropharynx, Normal External Ear Exam, Mucous Membranes Moist, TM's Normal Bilaterally External Ear Exam: Normal External Inspection TM/Canal Exam: Bilateral Normal Nose Exam: Normal Nose Exam Mouth Exam: Normal Inspection Throat Exam: Normal Inspection - Neck Neck Exam: Normal Inspection, Full ROM, Trachea Midline - Chest Chest Inspection: Normal Inspection, Symmetric Chest Wall Rise - Respiratory Respiratory Exam: Normal Lung Sounds Bilat Respiratory Exam: Bilateral Clear to Auscultation - Cardiovascular Cardiovascular Exam: Regular Rate, Normal Rhythm, Normal Heart Sounds, Systolic Murmur - Abdominal Exam Abdominal Exam: Normal Inspection, Normal Bowel Sounds, Soft, Trauma (surgical incision suprapubic area with poor approximation with pink thick discharge) Abdominal Tenderness: Suprapubic, Mild - Extremities Extremities Exam: Normal Inspection, Full ROM, Normal Capillary Refill. negative: Tenderness, Edema, Joint Swelling, Calf Tenderness, Other - Back Back Exam: Normal Inspection, Full ROM - Neurologic Neurological Exam: Alert, Oriented X3, CN II-XII Intact, Normal Gait, Reflexes Normal - Psychiatric Psychiatric Exam: Normal Affect, Normal Mood. negative: Depressed, Agitated, Anxious, Flat Affect, Manic, Homicidal Ideation, Suicidal Ideation, Other - Skin Skin Exam: Warm, Dry, Intact, Normal Color. negative: Cyanosis, Erythema ROR - Labs Reviewed Laboratory Results Reviewed?: Yes (all labs and x-ry results reviewed and discussed with patient and spouse) Result Diagrams: 07/04/17 22:46 07/04/17 22:46 Laboratory: WBC 7.6 X10^3/uL (3.6-10.0) 07/04/17 22:46 RBC 3.64 X10^6/uL (3.5-5.4) 07/04/17 22:46 Hgb 9.7 g/dL (12.0-16.0) L 07/04/17 22:46 Hct 28.8 % (36.0-47.0) L 07/04/17 22:46 MCV 79.2 fL (80.0-100.0) L 07/04/17 22:46 MCH 26.6 pg (27.0-34.0) L 07/04/17 22:46 MCHC 33.6 g/dL (33.0-35.0) 07/04/17 22:46 RDW 15.8 % (11.6-16.5) 07/04/17 22:46 Plt Count 245 X10^3/uL (150.0-450.0) 07/04/17 22:46 MPV 6.8 fL (7.4-11.0) L 07/04/17 22:46 Neut % (Auto) 62.7 % (42.0-75.0) 07/04/17 22:46 Lymph % (Auto) 27.7 % (21.0-51.0) 07/04/17 22:46 Placer % (Auto) 6.4 % (0.0-13.0) 07/04/17 22:46 Eos % (Auto) 2.3 % (0.9-2.9) 07/04/17 22:46 Baso % (Auto) 0.9 % (0.2-1.0) 07/04/17 22:46 Neut # (Auto) 4.7 x10^3/uL (2.2-4.8) 07/04/17 22:46 Lymph # (Auto) 2.1 X10^3/uL (1.3-2.9) 07/04/17 22:46 Placer # (Auto) 0.5 x10^3/uL (0.3-0.8) 07/04/17 22:46 Eos # (Auto) 0.2 x10^3/uL (0.0-0.2) 07/04/17 22:46 Baso # (Auto) 0.1 X10^3/uL (0.0-0.1) 07/04/17 22:46 Absolute Nucleated RBC 0.0 /100WBC 07/04/17 22:46 Sodium 137 mmol/L (136-145) 07/04/17 22:46 Corrected Sodium TNP 07/04/17 22:46 Potassium 3.8 mmol/L (3.5-5.1) 07/04/17 22:46 Chloride 106 mmol/L (98-107) 07/04/17 22:46 Carbon Dioxide 25.8 mmol/L (21-32) 07/04/17 22:46 BUN 9 mg/dL (7-18) 07/04/17 22:46 Creatinine 0.58 mg/dL (0.55-1.02) 07/04/17 22:46 Est GFR (MDRD) Af Amer > 60 (>60) 07/04/17 22:46 Est GFR (MDRD) Non-Af > 60 (>60) 07/04/17 22:46 Glucose 89 mg/dL (65-99) 07/04/17 22:46 Calcium 8.5 mg/dL (8.5-10.1) 07/04/17 22:46 - Diagnosis Discharge Problem: Status post section, Wound dehiscence, - Discharge Plan Disposition: HOME, SELF-CARE Condition: Stable Prescriptions: Cephalexin [KEFLEX CAP 500 MG *] 500 mg PO TID #30 cap - Follow ups/Referrals Follow ups/Referrals: PEGGY MEI [Primary Care Provider] - 3 days - Instructions Instructions: Wound Dehiscence, [id number], Delivery, Care After
[2017-07-04 22:57] LABS: BASOPHILS # (AUTO) 0.1 X10^3/uL (0.0-0.1); BASOPHILS % (AUTO) 0.9 % (0.2-1.0); EOSINOPHILS # (AUTO) 0.2 x10^3/uL (0.0-0.2); EOSINOPHILS % (AUTO) 2.3 % (0.9-2.9); HEMATOCRIT 28.8 % (36.0-47.0); HEMOGLOBIN 9.7 g/dL (12.0-16.0); LYMPHOCYTES # (AUTO) 2.1 X10^3/uL (1.3-2.9); LYMPHOCYTES % (AUTO) 27.7 % (21.0-51.0); MEAN CORPUSCULAR HEMOGLOBIN 26.6 pg (27.0-34.0); MEAN CORPUSCULAR HGB CONC 33.6 g/dL (33.0-35.0); MEAN CORPUSCULAR VOLUME 79.2 fL (80.0-100.0); MEAN PLATELET VOLUME 6.8 fL (7.4-11.0); MONOCYTES # (AUTO) 0.5 x10^3/uL (0.3-0.8); MONOCYTES % (AUTO) 6.4 % (0.0-13.0); NEUTROPHILS # (AUTO) 4.7 x10^3/uL (2.2-4.8); NEUTROPHILS % (AUTO) 62.7 % (42.0-75.0); PLATELET COUNT 245 X10^3/uL (150.0-450.0); RED BLOOD COUNT 3.64 X10^6/uL (3.5-5.4); RED CELL DISTRIBUTION WIDTH 15.8 % (11.6-16.5); WHITE BLOOD COUNT 7.6 X10^3/uL (3.6-10.0)
[2017-07-04 23:03] LABS: BLOOD UREA NITROGEN 9 mg/dL (7-18); CALCIUM 8.5 mg/dL (8.5-10.1); CARBON DIOXIDE 25.8 mmol/L (21-32); CHLORIDE 106 mmol/L (98-107); CREATININE 0.58 mg/dL (0.55-1.02); SODIUM 137 mmol/L (136-145); eGFR BLACK RACES > 60 (>60); eGFR NON BLACK RACES > 60 (>60)
[2017-07-04] MEDS ORDERED: KEFLEX CAP 500 MG PO ONE ×2 (23:11→23:14)
[2017-07-04] MEDS ORDERED: BENZOIN COMPOUND TINCTURE ONE (23:20)
== END 2017-07-05 00:08 | disposition home or self-care (01) ==
LOC: ER 22:08
DX: O90.0 Disruption of cesarean delivery wound (principal); Z98.890 Other specified postprocedural states
CPT/HCPCS: 36415; 80048; 85025; 87070; 87075; 99282